=== PATIENT | male | born 1990 | race Caucasian/White ===

== ENCOUNTER 2021-03-10 22:43 | Emergency (ER) | payer BC, OTHER ==
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
[2021-03-10 22:54] VITALS: O2SAT 98
[2021-03-10] MEDS ORDERED: XYLOCAINE 1% HCL 20 ML MDV ONE (22:59)
[2021-03-10] MEDS ORDERED: XYLOCAINE 1% HCL 20 ML MDV IJ ONE (23:01)
[2021-03-10] MEDS ORDERED: BACIGUENT PACKET TP ONE (23:02)
[2021-03-10] MEDS ORDERED: NORCO 5/325 MG PO ONE (23:13)
[2021-03-10] MEDS ORDERED: NORCO 5/325 MG ONE (23:23)
[2021-03-10] MEDS ORDERED: BACIGUENT PACKET ONE (23:23)
[2021-03-11 00:31] VITALS: BP 126/77; PULSE 77
== END 2021-03-11 00:32 | disposition home or self-care (01) ==
LOC: ED 22:43
DX: S01.312A Laceration without foreign body of left ear, initial encounter (principal); W54.0XXA Bitten by dog, initial encounter; Y93.89 Activity, other specified; Y92.89 Other specified places as the place of occurrence of the external cause; Y99.8 Other external cause status
CPT/HCPCS: 12013; 99283; A9270-GY